=== PATIENT | male | born 1955 | race American Indian/Alaskan Native ===

== ENCOUNTER 2017-10-24 08:03 | Emergency (ER) | payer SELFPAY ==
[2017-10-24 08:34] VITALS: BP 157/83
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
[2017-10-24] MEDS ORDERED: MOTRIN PO ONE (10:36)
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
== END 2017-10-24 11:41 | disposition home or self-care (01) ==
LOC: ED 08:03
DX: S13.4XXA Sprain of ligaments of cervical spine, initial encounter (principal); S39.012A Strain of muscle, fascia and tendon of lower back, initial encounter; S86.912A Strain of unspecified muscle(s) and tendon(s) at lower leg level, left leg, initial encounter; V79.40XA Driver of bus injured in collision with unspecified motor vehicles in traffic accident, initial encounter; Y93.89 Activity, other specified; Y99.8 Other external cause status; Y92.488 Other paved roadways as the place of occurrence of the external cause